=== PATIENT | male | born 1990 | race Two or more races ===

== ENCOUNTER 2023-11-23 21:24 | Emergency (ER) | payer MEDICAID, OTHER ==
[~2023-11-23] VITALS: Ht 180.3 cm; Wt 82.0 kg
[2023-11-23 23:29] VITALS: BP 125/59; PULSE 62; RESP 18; TEMP 97.5; O2SAT 97
== END 2023-11-23 23:34 | disposition home or self-care (01) ==
LOC: ER 21:24
DX: S01.01XD Laceration without foreign body of scalp, subsequent encounter (principal); X58.XXXD Exposure to other specified factors, subsequent encounter